=== PATIENT | female | born 1975 | race Caucasian/White ===

== ENCOUNTER → 2019-12-15 08:59 | Outpatient (POV) | payer BC, SELFPAY | PROVIDERS: Visit Provider Nurse Practitioner Family | DX: Z00.00 Encounter for general adult medical examination without abnormal findings (principal) ==

== ENCOUNTER → 2021-01-10 13:00 | Outpatient (CLI) | payer BC, SELFPAY ==
[2021-01-10 13:37] LABS: Basophils # 0.1 K/mm3 (0-0.2); Basophils % 0.9 % (0.1-2.0); Eosinophils # 0.1 K/mm3 (0.0-0.4); Hemoglobin 12.9 g/dL (12.2-16.2); Lymphocytes # 1.8 K/mm3 (0.7-4.5); Lymphocytes % 35.3 % (10-50); Mean Corpuscular HGB Conc 32.3 g/dL (31.8-35.4); Mean Corpuscular Hemoglobin 30.2 pg (27.0-31.2); Mean Corpuscular Volume 93.4 fl (81-99); Monocytes # 0.3 K/mm3 (0.1-1.0); Monocytes % 5.3 % (1.7-9.3); Neutrophils # 2.9 K/mm3 (1.8-7.8); Neutrophils % 56.5 % (37.0-80.0); Platelet Count 208 K/mm3 (142-424); Red Blood Count 4.28 M/mm3 (4.20-5.40); Red Cell Distribution Width 13.4 % (11.5-17.5)
[2021-01-10 14:09] LABS: Chloride 105 mmol/L (98-107)
[2021-01-10 14:10] LABS: Potassium 4.8 mmoL/L (3.5-5.1); Sodium 140 mmol/L (136-145)
[2021-01-10 14:12] LABS: Alanine Aminotransferase 15 U/L (12-78); Aspartate Amino Transferase 31 U/L (14-36); Blood Urea Nitrogen 19 mg/dl (7-17); Estimated Glomerular Filt Rate 60 ml/min (>60); GFR (African American) 73 ML/MIN (>60)
[2021-01-10 14:13] LABS: Albumin Level 4.6 g/dl (3.5-5.0); Albumin/Globulin Ratio 1.4 (1.1-1.8); Alkaline Phosphatase 76 U/L (38-126); Anion Gap 8.8 mEq/L (5-15); Bilirubin,Total 0.4 mg/dl (0.2-1.3); Calcium 9.5 mg/dl (8.4-10.2); Carbon Dioxide 31 mmol/L (22.0-30.0); Chol/HDL Ratio 3.3 (1-3.5); Cholesterol 251 mg/dl (140-200); Globulin 3.4 g/dL (1.3-3.2); Glucose 93 mg/dl (74-100); HDL Cholesterol 77 mg/dl (40-60); Triglycerides 59 mg/dl (30-150); VLDL Cholesterol 12 mg/dL (0-40)
[2021-01-10 14:14] LABS: Hemoglobin A1C 5.4 % (4.0-6.0)
[2021-01-10 14:25] LABS: Direct LDL Cholesterol 121.55 mg/dL (100-129)
[2021-01-10 14:29] LABS: Triiodothryronine (T3) Uptake 26 % (23.5-40.5)
[2021-01-10 14:30] LABS: Free Thyroxine Index 0.9 ug/dL (5.93-13.13); T4 (Thyroxine) 3.3 ug/dl (5.53-11.0)
== END ==
PROVIDERS: Visit Provider Internal Medicine Adolescent Medicine
DX: Z00.00 Encounter for general adult medical examination without abnormal findings (principal); R73.9 Hyperglycemia, unspecified; E03.9 Hypothyroidism, unspecified
CPT/HCPCS: 36415; 80053; 80061; 83036; 84436; 84443; 84479; 85025

== ENCOUNTER → 2021-01-15 10:15 | Outpatient (CLI) | payer BC, SELFPAY ==
--- NOTE | 2021-01-15 10:20 | MR_ITS ---
PROCEDURE: MR HEAD/BRAIN WO CON CLINICAL INDICATION: HEADACHES AND DIZZINESS VISUAL CHANGES COMPARISON: No exams were available for comparison TECHNIQUE: Routine multiplanar multi echo sequences are performed without gadolinium enhancement. FINDINGS: No midline shift mass effect intracranial hemorrhage or hydrocephalus. The cerebellopontine angles, cerebellum, brainstem and mid brain have an unremarkable appearance. The pituitary, optic chiasm, corpus callosum, and craniocervical junction have an unremarkable appearance. No white matter abnormalities. No mastoid effusion or sinus air-fluid level. IMPRESSION: Negative unenhanced MRI of the brain Dictated by: Mihir Phillips MD 01/19/2021 09:20 Mihir Phillips MD in [place] 01/19/2021 09:20
== END ==
PROVIDERS: PCP Internal Medicine Adolescent Medicine; Visit Provider Internal Medicine Adolescent Medicine
DX: G44.52 New daily persistent headache (NDPH) (principal)
CPT/HCPCS: 70551

== ENCOUNTER → 2021-04-26 11:39 | Outpatient (CLI) | payer BC, SELFPAY ==
[2021-04-26 13:48] LABS: Chloride 103 mmol/L (98-107); Sodium 141 mmol/L (136-145)
[2021-04-26 13:49] LABS: Potassium 4.5 mmoL/L (3.5-5.1)
[2021-04-26 13:51] LABS: Alanine Aminotransferase 24 U/L (12-78); Albumin Level 4.4 g/dl (3.5-5.0); Albumin/Globulin Ratio 1.3 (1.1-1.8); Alkaline Phosphatase 86 U/L (38-126); Anion Gap 14.5 mEq/L (5-15); Aspartate Amino Transferase 33 U/L (14-36); Bilirubin,Total 0.4 mg/dl (0.2-1.3); Blood Urea Nitrogen 14 mg/dl (7-17); Carbon Dioxide 28 mmol/L (22.0-30.0); Estimated Glomerular Filt Rate 78 ml/min (>60); GFR (African American) 94 ML/MIN (>60); Globulin 3.3 g/dL (1.3-3.2); Total Protein,Serum 7.7 g/dl (6.3-8.2)
[2021-04-26 13:52] LABS: Glucose 85 mg/dl (74-100)
[2021-04-26 14:38] LABS: Free Thyroxine Index 3.4 ug/dL (5.93-13.13); T4 (Thyroxine) 10.7 ug/dl (5.53-11.0); Triiodothryronine (T3) Uptake 32 % (23.5-40.5)
[2021-04-26 14:51] LABS: Thyroid Stimulating Hormone 0.81 uIU/mL (0.465-4.68)
== END ==
PROVIDERS: Visit Provider Internal Medicine Adolescent Medicine
DX: E03.9 Hypothyroidism, unspecified (principal)
CPT/HCPCS: 36415; 80053; 84436; 84443; 84479

== ENCOUNTER → 2021-11-14 16:26 | Outpatient (CLI) | payer BC, SELFPAY | PROVIDERS: PCP Internal Medicine Adolescent Medicine; Visit Provider Nurse Practitioner | DX: U07.1 COVID-19 (principal) | CPT/HCPCS: C9803; U0003; U0005 ==

== ENCOUNTER 2021-11-22 00:40 | Emergency (ER) | payer BC, SELFPAY ==
[2021-11-22 00:41] VITALS: BP 137/69; PULSE 78; RESP 20; TEMP 36.8; O2SAT 94; BMI 32.2
--- NOTE | 2021-11-22 00:47 | ECG_ITS ---
APPROVED REPORT Exam: Resting ECG HR:75 bpm ECG Measurements Heart Rate 75 AXES TX 138 P 61 QRSd 90 QRS -33 QT 378 T 50 QTc 422 Conclusion Normal sinus rhythm Possible Left atrial enlargement Left axis deviation RSR' or QR pattern in V1 suggests right ventricular conduction delay Abnormal ECG Electronically signed by : Kishor Culp MD 11/24/2021 13:47:34
[2021-11-22 00:49] VITALS: BMI 31.6
--- NOTE | 2021-11-22 00:50 | XR_ITS ---
PROCEDURE INFORMATION: Exam: XR Chest Exam date and time: 11/22/2021 12:50 AM Age: 46 years old Clinical indication: Pain; Shortness of breath; Chest pressure; Additional info: Covid TECHNIQUE: Imaging protocol: XR of the chest. Views: 2 views. COMPARISON: No relevant prior studies available. FINDINGS: Lungs: There are areas of patchy interstitial infiltration noted within both mid and lower lung zones. Relative sparing of the upper lobes. No evidence of pulmonary volume overload. Pleural spaces: Unremarkable. No pleural effusion. No pneumothorax. Heart/Mediastinum: Unremarkable. No cardiomegaly. Bones/joints: Mild dextroconvex thoracic scoliosis. IMPRESSION: There are areas of patchy interstitial infiltration mainly within both mid and lower lung zones with relative sparing of the upper lobes.
--- NOTE | 2021-11-22 00:51 | CT_ITS ---
PROCEDURE INFORMATION: Exam: CTA Chest With Contrast Exam date and time: 11/22/2021 12:51 AM Age: 46 years old Clinical indication: Pain and condition or disease; Other: Covid; Shortness of breath; Chest pressure; Additional info: Chest pain w covid TECHNIQUE: Imaging protocol: Computed tomographic angiography of the chest with contrast. 3D rendering (Not supervised by radiologist): MIP and/or 3D reconstructed images were created by the technologist. Radiation optimization: All CT scans at this facility use at least one of these dose optimization techniques: automated exposure control; mA and/or kV adjustment per patient size (includes targeted exams where dose is matched to clinical indication); or iterative reconstruction. Contrast material: ISOVUE; Contrast volume: 70 ml; Contrast route: INTRAVENOUS (IV); COMPARISON: CR XR CHEST 2V 11/22/2021 1:20 AM FINDINGS: Pulmonary arteries: The pulmonary trunk, main, and branch pulmonary arteries contain no filling defects. Aorta: Unremarkable. No aortic aneurysm. No aortic dissection. Lungs: There are areas of amorphous interstitial infiltration within peripheral aspects of both mid and lower lung zones. Primary diagnostic consideration would be atypical interstitial pneumonitis including interstitial pneumonitis caused by Covid 19. Pleural spaces: Unremarkable. No pneumothorax. No pleural effusion. Heart: No cardiomegaly. No pericardial effusion. Heart RV/LV ratio: Within normal limits. Coronary arteries: There is no evidence of significant coronary artery calcifications. Mediastinal space: No evidence of mediastinal or hilar mass. Lymph nodes: Unremarkable. No enlarged lymph nodes. Bones/joints: Unremarkable. No acute fracture. Soft tissues: Unremarkable. IMPRESSION: 1. No evidence of main or branch pulmonary embolism. 2. Interstitial infiltrates noted within both mid and lower lung zones, compatible with atypical interstitial pneumonitis, including pneumonitis caused by Covid 19.
[2021-11-22 01:32] LABS: Basophils % 0.5 % (0.1-2.0); Eosinophils % 0.4 % (0.1-12.0); Hematocrit 40.3 % (37.0-47.0); Lymphocytes # 0.9 K/mm3 (0.7-4.5); Lymphocytes % 14.7 % (10-50); Mean Corpuscular HGB Conc 32.2 g/dL (31.8-35.4); Mean Corpuscular Hemoglobin 30.1 pg (27.0-31.2); Mean Corpuscular Volume 93.5 fl (81-99); Mean Platelet Volume 10.2 fl (7.4-10.4); Monocytes # 0.3 K/mm3 (0.1-1.0); Monocytes % 4.6 % (1.7-9.3); Neutrophils # 4.7 K/mm3 (1.8-7.8); Neutrophils % 79.8 % (37.0-80.0); Platelet Count 203 K/mm3 (142-424); Red Blood Count 4.31 M/mm3 (4.20-5.40); Red Cell Distribution Width 13.7 % (11.5-17.5); White Blood Count 5.9 K/mm3 (4.8-10.8)
[2021-11-22 01:38] LABS: Alanine Aminotransferase 18 U/L (12-78); Albumin Level 3.7 g/dl (3.5-5.0); Albumin/Globulin Ratio 1.2 (1.1-1.8); Alkaline Phosphatase 61 U/L (38-126); Amylase 84 U/L (30-110); Anion Gap 10.7 mEq/L (5-15); Aspartate Amino Transferase 31 U/L (14-36); Bilirubin,Total 0.3 mg/dl (0.2-1.3); Blood Urea Nitrogen 10 mg/dl (7-17); Calcium 7.8 mg/dl (8.4-10.2); Carbon Dioxide 29 mmol/L (22.0-30.0); Chloride 102 mmol/L (98-107); Creatinine Clearance Estimated 117 mL/min (50-200); Estimated Glomerular Filt Rate 78 ml/min (>60); GFR (African American) 94 ML/MIN (>60); Glucose 99 mg/dl (74-100); Lipase 90 U/L (23-300); Potassium 3.7 mmoL/L (3.5-5.1); Sodium 138 mmol/L (136-145); Total Protein,Serum 6.7 g/dl (6.3-8.2)
[2021-11-22 01:54] LABS: Troponin I < 0.01 ng/ml (0.00-0.034)
[2021-11-22 01:58] LABS: Procalcitonin 0.054 ng/mL (0.0-2.0)
[2021-11-22 02:04] LABS: Free T4 (Free Thyroxine) 0.53 ng/dl (0.78-2.19)
[2021-11-22 02:08] LABS: Erythrocyte Sedimentation Rate 71 mm/hr (0-20)
--- NOTE | 2021-11-22 02:30 | [facility].EDSOB ---
ED Disposition Clinical Impression: COVID-19, Hypothyroidism (acquired) Disposition: Home, Self-Care Condition on Discharge: Good Instructions: DI for COVID-19 (Suspected or Confirmed ) Additional Instructions: fluids and call pcp in am Referrals: Kishor Culp MD [Primary Care Provider] - - Critical Care Critical Care Time: No Attestation: On 11/22/21, the high probability of a clinically significant, sudden or life threatening deterioration of the following system(s) required my full and direct attention, intervention and personal management. The time I documented below is in addition to time spent performing reported procedures but includes the following listed in this critical care notation. Medical Decision Making - Medical Records Medical records reviewed: Yes: I reviewed the patient's medical records. - Tramaine Inquiry Pt receiving controlled substance: No Vital Signs: 11/22/21 00:41 Temperature 98.3 F Temperature Source Oral Pulse Rate [Apical] 78 Respiratory Rate 20 Blood Pressure [Right Arm] 137/69 Blood Pressure Mean [Right Arm] 91 Blood Pressure Source [Right Arm] Automatic Cuff Blood Pressure Position [Right Arm] Sitting 02 Sat by Pulse Oximetry 94 L Oxygen Delivery Method Room Air - Lab Data Lab results reviewed: Yes: I reviewed the patient's lab results. Lab Results 11/22/21 01:24: WBC 5.9, RBC 4.31, Hgb 13.0, Hct 40.3, MCV 93.5, MCH 30.1, MCHC 32.2, RDW 13.7, Plt Count 203, MPV 10.2, Neut % (Auto) 79.8, Lymph % (Auto) 14.7, Cecil % (Auto) 4.6, Eos % (Auto) 0.4, Baso % (Auto) 0.5, Neut # (Auto) 4.7, Lymph # (Auto) 0.9, Cecil # (Auto) 0.3, Eos # (Auto) 0.0, Baso # (Auto) 0.0, ESR 71 H 11/22/21 01:24: Sodium 138, Potassium 3.7, Chloride 102, Carbon Dioxide 29, Anion Gap 10.7, BUN 10, Creatinine 0.80, Estimated Creat Clear 117, Estimated GFR 78, Est GFR ( Amer) 94, Glucose 99, Calcium 7.8 L, Total Bilirubin 0.3, AST 31, ALT 18, Alkaline Phosphatase 61, Troponin I < 0.01, C-Reactive Protein 22.0 H, Total Protein 6.7, Albumin 3.7, Globulin 3.0, Albumin/Globulin Ratio 1.2, Amylase 84, Procalcitonin 0.054, TSH 48.80 H 11/22/21 01:24: Lipase 90 11/22/21 01:24: Free T4 0.53 L Result diagrams: 11/22/21 01:24 11/22/21 01:24 Orders (Tests/Meds): ED MEDICATIONS Generic Name Dose Route Start Last Admin Trade Name Freq PRN Reason Stop Dose Admin Sodium Chloride 1,000 mls @ 999 mls/hr 11/22/21 01:00 11/22/21 01:03 Sod Chlor 0.9% 1000ml Bag IV 11/22/21 02:00 999 mls/hr .Q1H1M MADI Administration Discontinued Medications Generic Name Dose Route Start Last Admin Trade Name Freq PRN Reason Stop Dose Admin Dexamethasone Sodium Phosphate 8 mg 11/22/21 00:53 11/22/21 01:53 Dexamethasone 4mg/Ml 1ml Vial IV 11/22/21 00:54 Not Given ONCE ONE Dexamethasone Sodium Phosphate 10 mg 11/22/21 00:58 11/22/21 01:03 Dexamethasone 4mg/Ml 5ml Mdv IV 11/22/21 00:59 10 mg ONCE ONE Administration Iopamidol 70 ml 11/22/21 01:46 11/22/21 01:48 Iopamidol-370 (76%);100ml Bottle IV 11/22/21 01:47 70 ml ONCE ONE Administration Ketorolac Tromethamine 30 mg 11/22/21 00:53 11/22/21 01:04 Ketorolac 30mg/Ml Vial IV 11/22/21 00:54 30 mg ONCE ONE Administration Ondansetron HCl 4 mg 11/22/21 00:53 11/22/21 01:04 Ondansetron 4mg/2ml Vial IV 11/22/21 00:54 4 mg ONCE ONE Administration Sodium Chloride 50 ml 11/22/21 01:46 11/22/21 01:48 0.9 % Sodium Chloride 50 Ml Vial IV 11/22/21 01:47 50 ml ONCE ONE Administration Sodium Chloride 10 ml 11/22/21 01:46 11/22/21 01:48 Sodium Chloride 0.9% 10ml Syr (Rad Only) IV 11/22/21 01:47 10 ml ONCE ONE Administration ORDERS Category Date Time Status Troponin I Q3H Lab 11/22/21 04:00 Ordered Troponin I Q3H Lab 11/22/21 07:00 Ordered Urinalysis and Microscopic Stat Lab 11/22/21 00:50 Ordered - Radiology Data #1 Image(s): Chest Image Reviewed: Yes I have revie
[2021-11-22 02:43] VITALS: BP 138/70; PULSE 79; RESP 20; TEMP 36.8; O2SAT 94
== END 2021-11-22 02:50 | disposition home or self-care (01) ==
PROVIDERS: Emergency Provider Emergency Medicine; PCP Internal Medicine Adolescent Medicine
DX: U07.1 COVID-19 (principal); E03.9 Hypothyroidism, unspecified
CPT/HCPCS: 71046; 71275; 80053; 82150; 83690; 84145; 84439; 84443; 84484; 85025; 85651; 86140; 93005; 96365; 96375; 99282; J2405; Q9967

== ENCOUNTER → 2022-02-01 09:43 | Outpatient (CLI) | payer BC, SELFPAY ==
[2022-02-01 10:21] LABS: Eosinophils # 0.1 K/mm3 (0.0-0.4); Hematocrit 42.4 % (37.0-47.0); Hemoglobin 13.5 g/dL (12.2-16.2); Lymphocytes # 0.9 K/mm3 (0.7-4.5); Lymphocytes % 21.1 % (10-50); Mean Corpuscular HGB Conc 31.7 g/dL (31.8-35.4); Mean Corpuscular Hemoglobin 30.3 pg (27.0-31.2); Mean Corpuscular Volume 95.3 fl (81-99); Mean Platelet Volume 10.4 fl (7.4-10.4); Monocytes # 0.3 K/mm3 (0.1-1.0); Neutrophils # 2.8 K/mm3 (1.8-7.8); Neutrophils % 68.9 % (37.0-80.0); Platelet Count 260 K/mm3 (142-424); Red Blood Count 4.45 M/mm3 (4.20-5.40); Red Cell Distribution Width 13.9 % (11.5-17.5); White Blood Count 4.1 K/mm3 (4.8-10.8)
[2022-02-01 10:44] LABS: Chloride 106 mmol/L (98-107); Potassium 4.3 mmoL/L (3.5-5.1); Sodium 139 mmol/L (136-145)
[2022-02-01 10:47] LABS: Alanine Aminotransferase 26 U/L (12-78); Albumin Level 3.9 g/dl (3.5-5.0); Albumin/Globulin Ratio 1.4 (1.1-1.8); Alkaline Phosphatase 75 U/L (38-126); Anion Gap 9.3 mEq/L (5-15); Aspartate Amino Transferase 35 U/L (14-36); Bilirubin,Total 0.3 mg/dl (0.2-1.3); Blood Urea Nitrogen 21 mg/dl (7-17); Carbon Dioxide 28 mmol/L (22.0-30.0); Estimated Glomerular Filt Rate 68 ml/min (>60); GFR (African American) 82 ML/MIN (>60); Globulin 2.8 g/dL (1.3-3.2); Total Protein,Serum 6.7 g/dl (6.3-8.2)
[2022-02-01 10:48] LABS: Calcium 8.4 mg/dl (8.4-10.2); Glucose 97 mg/dl (74-100)
[2022-02-01 11:04] LABS: Triiodothryronine (T3) Uptake 29 % (23.5-40.5)
[2022-02-01 11:19] LABS: Thyroid Stimulating Hormone 0.79 uIU/mL (0.465-4.68)
[2022-02-01 11:24] LABS: Free Thyroxine Index 3.1 ug/dL (5.93-13.13); T4 (Thyroxine) 10.6 ug/dl (5.53-11.0)
== END ==
PROVIDERS: PCP Internal Medicine Adolescent Medicine; Visit Provider Internal Medicine Adolescent Medicine
DX: E03.9 Hypothyroidism, unspecified (principal); F32.81 Premenstrual dysphoric disorder
CPT/HCPCS: 36415; 80053; 84436; 84443; 84479; 85025

== ENCOUNTER → 2022-02-06 08:10 | Outpatient (CLI) | payer BC, SELFPAY ==
--- NOTE | 2022-02-06 08:15 | XR_ITS ---
FINAL REPORT CLINICAL HISTORY: TREMAYNE HIP PAIN FINDINGS: SACROILIAC JOINTS 3 views were obtained. There is no acute fracture or dislocation. There are mild degenerative changes. There is partial lumbarization of S1 on the right. There is no soft tissue abnormality. IMPRESSION: Mild degenerative change. Reviewed, Interpreted and Dictated by Gene Calhoun III, MD Transcribed by Josiah Mcconnell Authenticated by Gene Calhoun III, MD on 02/06/2022 09:23:55 AM [facility]
--- NOTE | 2022-02-06 08:16 | XR_ITS ---
FINAL REPORT CLINICAL HISTORY: TREMAYNE HIP PAIN FINDINGS: 2 views of the left hip were obtained. There is no acute fracture or dislocation. The joint spaces are intact. There are no soft tissue abnormalities. IMPRESSION: No acute process. Reviewed, Interpreted and Dictated by Gene Calhoun III, MD Transcribed by Josiah Mcconnell Authenticated by Gene Calhoun III, MD on 02/06/2022 09:23:56 AM [facility]
--- NOTE | 2022-02-06 08:16 | XR_ITS ---
FINAL REPORT CLINICAL HISTORY: PAIN IN RIGHT AND LEFT HIP FINDINGS: 2 views of the right hip with AP pelvis were obtained. There is no acute fracture or dislocation. There are mild to moderate degenerative changes of the right hip. There are postoperative changes of the right femoral head and neck. There are no soft tissue abnormalities. IMPRESSION: Postoperative and degenerative changes of the right hip. Reviewed, Interpreted and Dictated by Gene Calhoun III, MD Transcribed by Josiah Mcconnell Authenticated by Gene Calhoun III, MD on 02/06/2022 09:23:54 AM [facility]
== END ==
PROVIDERS: PCP Internal Medicine Adolescent Medicine; Visit Provider Internal Medicine Adolescent Medicine
DX: M53.3 Sacrococcygeal disorders, not elsewhere classified (principal); M25.552 Pain in left hip; M25.551 Pain in right hip
CPT/HCPCS: 72202; 73502